=== PATIENT | male | born 1955 | race Caucasian/White ===

== ENCOUNTER → 2016-06-12 | Outpatient (CLI) | payer OTHER ==
[~2016-06-12] MED LIST: ADVAIR 500-501 EACH INH; AUGMENTIN 875-1 EACH PO; BUSPIRONE HCL10 MG PO; CATAPRES 0.1MG0.1 MG PO; CEFDINIR300 MG PO; DOCUSATE SODIU250 MG PO; DULERA 200 MCG8.8 GM INH; ELIQUIS 5 MG TAB5 MG PO; FLEXERIL 10 MG10 MG PO; FLOVENT DISKUS50 MCG INH; GLUCOPHAGE 500500 MG PO; LAMISIL TAB 25250 MG PO; LOPRESSOR50 MG PO; LOTRIMIN CREAM45 GM TOP; MEDROL DOSEPAK 24 MG PO; MIRALAX17 GM PO; NEURONTIN 400400 MG PO; OXYCODONE HCL10 MG PO; PAIN TOP; PERFOROMIS20 MCG/2 M NEB; PLAVIX 75 MG TA75 MG PO; PROTONIX 40 MG40 M1 PO; VENTOLIN/PROVE0.5 ML NEB; ZETIA10 MG PO; ZYLOPRIM 100 M100 MG PO
== END ==
LOC: EXRD 11:09
DX: Z09 Encounter for follow-up examination after completed treatment for conditions other than malignant neoplasm (principal); Z87.01 Personal history of pneumonia (recurrent)
CPT/HCPCS: 71020

== ENCOUNTER 2016-06-20 05:37 | Emergency (ER) | payer OTHER ==
[2016-06-20 09:48] LABS: HEMOGLOBIN 10.2 gm/dl (14.0-17.5); RED BLOOD COUNT 4.43 M/UL (4.20-5.50); WHITE BLOOD COUNT 22.3 K/UL (4.5-11.0)
[2016-06-20 10:12] LABS: BUN/CREATININE RATIO 29 (0-10)
== END 2016-06-20 13:33 | disposition home or self-care (01) ==
LOC: ER1 05:37
PROVIDERS: Emergency Medicine
DX: K92.0 Hematemesis (principal); G89.29 Other chronic pain; D72.829 Elevated white blood cell count, unspecified; J44.9 Chronic obstructive pulmonary disease, unspecified; I10 Essential (primary) hypertension; I48.91 Unspecified atrial fibrillation; F17.210 Nicotine dependence, cigarettes, uncomplicated
CPT/HCPCS: 36415; 71010; 80053; 81001; 82150; 82550; 82553; 83690; 83874; 84484; 85025; 85610; 85730; 93005; 94664; 96361; 96374; 96375; 99284; J2405